=== PATIENT | female | born 1970 | race Caucasian/White ===

== ENCOUNTER 2017-03-13 08:00 | Emergency (ER) | payer BC ==
[~2017-03-13] VITALS: Ht 162.6 cm; Wt 90.7 kg
[~2017-03-13 08:00] MED LIST: ALPR0.25 PO; ALPR0.254 PO; CHOL500049 PO; CITA-105 PO; CITA20TA4 PO; CITA40TA19 PO; EZET1TAB43; FURO20TA4 PO; GEMF600T3 PO; HYDR-3812 PO; HYDR1TAB PO; KCL10CCR PO; KCL20TCR PO; LIRA0.6P3 SQ; MELO-195 PO; MELO15TA14 PO; MTF500T; MTF500T PO; ONDA8TAB6 PO; PANT40TA2 PO; PHEN-483 PO; SITA100T; SPIR100T2 PO
[2017-03-13] MEDS ORDERED: POTA10TA10 (08:10)
[2017-03-13] MEDS ORDERED: DULA0.75 (08:10)
[2017-03-13 08:28] LABS: BASOPHILS % (AUTO) 1 % (0-10); EOSINOPHILS # (AUTO) 0.2 10^3/uL (0.0-0.3); EOSINOPHILS % (AUTO) 3 % (0-10); LYMPHOCYTES # (AUTO) 1.6 X 10^3 (1.0-4.0); LYMPHOCYTES % (AUTO) 27 % (12-44); MEAN CORPUSCULAR HEMOGLOBIN 31 PG (25-34); MEAN CORPUSCULAR HGB CONC 34 G/DL (32-36); MEAN CORPUSCULAR VOLUME 92 FL (80-99); MONOCYTES # (AUTO) 0.6 X 10^3 (0.0-1.0); MONOCYTES % (AUTO) 10 % (0-12); NEUTROPHILS # (AUTO) 3.7 X 10^3 (1.8-7.8); NEUTROPHILS % (AUTO) 60 % (42-75); PLATELET COUNT 338 10^3/uL (130-400); RED BLOOD COUNT 4.81 10^6/uL (4.35-5.85); RED CELL DISTRIBUTION WIDTH 12.3 % (10.0-14.5); WHITE BLOOD COUNT 6.1 10^3/uL (4.3-11.0)
--- NOTE | 2017-03-13 08:30 | Diagnostic Imaging Report ---
EXAM: CHEST 1 VIEW, AP/PA ONLY. INDICATION: Chest pain. COMPARISON: Chest radiograph 02/18/2015. FINDINGS: Normal heart size and pulmonary vascularity. No focal pulmonary opacity, pleural effusion, or pneumothorax. No acute osseous findings. IMPRESSION: Negative chest. Dictated by: Dictated on workstation # [id number]
[2017-03-13 08:45] LABS: ALANINE AMINOTRANSFERASE 50 U/L (0-55); ANION GAP 14 MMOL/L (5-14); ASPARTATE AMINO TRANSFERASE 28 U/L (5-34); BILIRUBIN,TOTAL 0.7 MG/DL (0.1-1.0); BLOOD UREA NITROGEN 15 MG/DL (7-18); BUN/CREATININE RATIO 17; CALCIUM 9.8 MG/DL (8.5-10.1); CARBON DIOXIDE 23 MMOL/L (21-32); CHLORIDE 102 MMOL/L (98-107); GFR ESTIMATED > 60; GLUCOSE 93 MG/DL (70-105); POTASSIUM 4.1 MMOL/L (3.6-5.0); SODIUM 139 MMOL/L (135-145); TOTAL PROTEIN 8.2 G/DL (6.4-8.2)
[2017-03-13 08:51] LABS: TROPONIN I < 0.30 NG/ML (<0.30)
--- NOTE | 2017-03-13 09:14 | ED Chest Pain ---
General Chief Complaint: Chest Pain Stated Complaint: CHEST PAIN Nursing Triage Note: AMBULATED TO ROOM 07 WITH COMLPAINTS OF CHEST/EPIGASTRIC PAIN STARTING AT 0705 TODAY. Nursing Sepsis Screen: No Definite Risk Source: patient Exam Limitations: no limitations History of Present Illness Time seen by provider: 09:10 Initial Comments The patient is a 47-year-old white female. She presents this morning with a chief complaint of chest pain. This began while she was at work at [employer] It has now largely abated. She had not done any usual activity today or yesterday. She is a lifetime nonsmoker. There are rampant lipid disorders in her family. She is taking gemfibrozil for triglycerides for 12 years. She is also hypertensive. She had a OSMANY/BSO done 12 years ago. Timing/Duration: 1 hour Severity/Quality: moderate Location: substernal Radiation: no radiation Activities at Onset: activity (light) Associated Symptoms: denies symptoms Allergies and Home Medications Allergies Coded Allergies: No Known Drug Allergies (Unverified , 10/31/16) Home Medications Cholecalciferol (Vitamin D3) 50,000 Unit Capsule, 50,000 UNIT PO WEEK, (Reported ) Citalopram Hydrobromide 40 Mg Tablet, 40 MG PO HS, (Reported) Dulaglutide 0.75 Mg/0.5 Ml Pen.injctr, #2 (Reported) Gemfibrozil 600 Mg Tablet, 600 MG PO BID, (Reported) Metformin Hcl 500 Mg Tablet, 500 MG PO BID, (Reported) Phentermine HCl 37.5 Mg Capsule, 37.5 MG PO DAILY, (Reported) Potassium Chloride 10 Meq Tablet.er, #90 (Reported) Spironolactone 100 Mg Tablet, 100 MG PO DAILY, (Reported) Review of Systems Constitutional: see HPI EENTM: No Symptoms Reported Respiratory: No Symptoms Reported Cardiovascular: Chest Pain Gastrointestinal: No Symptoms Reported Genitourinary: No Symptoms Reported Musculoskeletal: no symptoms reported Skin: no symptoms reported Psychiatric/Neurological: No Symptoms Reported Endocrine: No Symptoms Reported Hematologic/Lymphatic: No Symptoms Reported Past Johzyne-Fzboui-Uozfgg Hx Patient Social History Alcohol Use: Denies Use Recreational Drug Use: No Smoking Status: Never a Smoker Recent Foreign Travel: No Contact w/Someone Who Travel: No Recent Infectious Disease Expo: No Recent Hopitalizations: No Immunizations Up To Date Date of Influenza Vaccine: Sep 12, 2016 Seasonal Allergies Seasonal Allergies: No Surgeries HX Surgeries: Yes ( x3) Surgeries: Section, Hysterectomy Respiratory Hx Respiratory Disorders: Yes Respiratory Disorders: Sleep Apnea Cardiovascular Hx Cardiac Disorders: Yes Cardiac Disorders: Angina, High Cholesterol, Hypertension Neurological Hx Neurological Disorders: Yes Neurological Disorders: Headaches /Migraines 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 System Hx 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 Disorders: No Sexually Transmitted Disease: No HIV/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 Genitourinary Hx Genitourinary Disorders: No Gastrointestinal Hx Gastrointestinal Disorders: Yes Gastrointestinal Disorders: Gall Bladder Disease Musculoskeletal Hx Musculoskeletal Disorders: No Endocrine Hx Endocrine Disorders: Yes ("Thyroid nodule") Endocrine Disorders: Diabetes, Non-Insulin dep HEENT HX ENT Disorders: Yes (GLASSES, DENTURES) Loss of Vision: Bilateral Hearing Impairment: Denies Cancer Hx Cancer: Yes Cancer: Skin Psychosocial Hx Psychiatric Problems: Yes Behavioral Health Disorders: Anxiety, Depression Integumentary HX Skin/Integumentary Disorder: No Blood Transfusions Hx Blood Disorders: No Adverse Reaction to a Blood Tr: No (N/A) Family Medical History Family Medial History: Completed stroke 19 FATHER Congenital heart disease 19 MOTHER FH: COPD (chronic obstructive pulmonary disease) 19 MOTHER FH: skin cancer 19 MOTHER Hypertension 19 FATHER 19 MOTHER Myocardial infarction 19 FATHER Thyroid disease 19 MOTHER No Family History of: Alzheimer's disease Dementia Physical Exam Vital Signs Vital Sign - Last 12Hours 03/13/17 08:06 Temp 97.2 Pulse 75 Resp 16 B/P (MAP) 145/90 Pulse Ox 96 Capillary Refill : Less Than 3 Seconds General Appearance: Anxious, Mild Distress HEENT: Normal ENT Inspection Neck: Normal Inspection Respiratory: Chest Non Tender, Lungs Clear, Normal Breath Sounds, No Accessory Muscle Use, No Respiratory Distress Cardiovascular: Regular Rate, Rhythm, No Edema, No Gallop, No JVD, No Murmur, Normal Peripheral Pulses Gastrointestinal: Normal Bowel Sounds, No Organomegaly, No Pulsatile Mass, Non Tender Extremity: Normal Capillary Refill, Normal Inspection, Normal Range of Motion, Non Tender, No Calf Tenderness, No Pedal Edema Neurologic/Psychiatric: Alert, Oriented x3, No Motor/Sensory Deficits, Normal Mood/Affect Skin: Normal Color, Warm/Dry Lymphatic: No Adenopathy Progress/Results/Core Measures Results/Orders Lab Results Laboratory Tests Test 03/13/17 08:20 Range/Units White Blood Count 6.1 4.3-11.0 10^3/uL Red Blood Count 4.81 4.35-5.85 10^6/uL Hemoglobin 15.0 11.5-16.0 G/DL Hematocrit 44 35-52 % Mean Corpuscular Volume 92 80-99 FL Mean Corpuscular Hemoglobin 31 25-34 PG Mean Corpuscular Hemoglobin Concent 34 32-36 G/DL Red Cell Distribution Width 12.3 10.0-14.5 % Platelet Count 338 130-400 10^3/uL Mean Platelet Volume 10.0 7.4-10.4 FL Neutrophils (%) (Auto) 60 42-75 % Lymphocytes (%) (Auto) 27 12-44 % Monocytes (%) (Auto) 10 0-12 % Eosinophils (%) (Auto) 3 0-10 % Basophils (%) (Auto) 1 0-10 % Neutrophils # (Auto) 3.7 1.8-7.8 X 10^3 Lymphocytes # (Auto) 1.6 1.0-4.0 X 10^3 Monocytes # (Auto) 0.6 0.0-1.0 X 10^3 Eosinophils # (Auto) 0.2 0.0-0.3 10^3/uL Basophils # (Auto) 0.0 0.0-0.1 10^3/uL Sodium Level 139 135-145 MMOL/L Potassium Level 4.1 3.6-5.0 MMOL/L Chloride Level 102 98-107 MMOL/L Carbon Dioxide Level 23 21-32 MMOL/L Anion Gap 14 5-14 MMOL/L Blood Urea Nitrogen 15 7-18 MG/DL Creatinine 0.90 0.60-1.30 MG/DL Estimat Glomerular Filtration Rate > 60 BUN/Creatinine Ratio 17 Glucose Level 93 70-105 MG/DL Calcium Level 9.8 8.5-10.1 MG/DL Total Bilirubin 0.7 0.1-1.0 MG/DL Aspartate Amino Transf (AST/SGOT) 28 5-34 U/L Alanine Aminotransferase (ALT/SGPT) 50 0-55 U/L Alkaline Phosphatase 84 40-136 U/L Troponin I < 0.30 <0.30 NG/ML Total Protein 8.2 6.4-8.2 G/DL Albumin 5.0 H 3.2-4.5 G/DL My Orders Orders - CANDIDO JOHNSON MD Ekg Tracing (03/13/17 08:08) Cbc With Automated Diff (03/13/17 08:08) Comprehensive Metabolic Panel (03/13/17 08:08) Troponin I (03/13/17 08:08) Chest 1 View, Ap/Pa Only (03/13/17 08:08) Vital Signs/I&O Vital Sign - Last 12Hours 03/13/17 08:06 Temp 97.2 Pulse 75 Resp 16 B/P (MAP) 145/90 Pulse Ox 96 Blood Pressure Mean: 108 Departure Communication Progress Notes Chest x-ray, EKG, troponin are negative. Her risk factors are intermediate. Placed a call to Dr. Guerrero's office and he returned my call at [phone]. He will arrange for outpatient treadmill testing. Impression Impression: Primary Impression: Chest pain Disposition: 01 HOME, SELF-CARE Departure-Patient Inst. Decision time for Depature: 09:46 Referrals: MIREYA GUERRERO DO (PCP/Family) Primary Care Physician Patient Instructions: Chest Pain (DC) Add. Discharge Instructions: All discharge instructions reviewed with patient and/or family. Voiced understanding. Call Dr. Guerrero's office [phone] later this morning to schedule your treadmill testing. If significant chest pain returns return to the emergency room. CANDIDO JOHNSON MD Mar 13, 2017 09:14
[2017-03-13 10:13] VITALS: BP 116/83
== END 2017-03-13 10:13 | disposition home or self-care (01) ==
LOC: EDUNIT# 08:00 → ER 08:02
DX: R07.9 Chest pain, unspecified (principal); I10 Essential (primary) hypertension; E11.9 Type 2 diabetes mellitus without complications; E78.5 Hyperlipidemia, unspecified; Z79.84 Long term (current) use of oral hypoglycemic drugs; Z79.899 Other long term (current) drug therapy
CPT/HCPCS: 36415; 71010; 80053; 84484; 85025; 93005

== ENCOUNTER → 2017-10-18 | Outpatient (CLI) | payer BC ==
[~2017-10-18] MED LIST changes: +DULA0.75; +POTA10TA10
== END ==
LOC: LABNPT 10:05
PROVIDERS: ATTEND Otolaryngology Otolaryngology/Facial Plastic Surgery
DX: H93.91 Unspecified disorder of right ear (principal)
CPT/HCPCS: 87070; 87077; 87186

== ENCOUNTER 2020-02-05 15:06 | Emergency (ER) | payer BC ==
[~2020-02-05] VITALS: Ht 165 cm; Wt 100.0 kg
[~2020-02-05 15:06] MED LIST changes: +ACHD5005 PO; +GEMF600T8 PO; -HYDR-3812 PO; -SPIR100T2 PO; +SPIR100T4 PO
--- NOTE | 2020-02-05 15:28 | NUR ---
THE PT FELL OFF HER HORSE TO THE GROUND. SHE C/O LEFT RIB PAIN.
--- NOTE | 2020-02-05 15:51 | ED Fall/Injury ---
General Chief Complaint: Chest Wall Stated Complaint: RIB PAIN/FELL OF HORSE Nursing Triage Note: THE PT IS AMBULATORY TO THE ROOM WITHOUT DIFFICULTY. NO DISTRESS IS SEEN ON ARRIVAL. LOC IS NORMAL FOR THE PT. THE PT FEEL OFF HER HORSE. SHE C/O RIGHT RIB PAIN. Source: patient Exam Limitations: no limitations History of Present Illness Date Seen by Provider: Feb 05, 2020 Time Seen by Provider: 15:50 Initial Comments 50-year-old female patient presents with complaints of left rib pain after falling off of her horse. Patient reports losing her balance. She does state she hit her head on the ground and does have a mild headache. Denies loss of consciousness, neck pain, back pain, dizziness, seizure, vomiting, or nausea. Occurred: just prior to arrival Injuries/Pain Location: head, chest (left rib) Context: lost balance (patient reports losing balance and falling off a horse.) Loss of Consciousness: no loss of consciousness Modifying Factors: Worse With Movement Allergies and Home Medications Allergies Coded Allergies: No Known Drug Allergies (Unverified , 10/31/16) Home Medications Cholecalciferol (Vitamin D3) 50,000 Unit Capsule, 50,000 UNIT PO WEEK, (Reported) Citalopram Hydrobromide 40 Mg Tablet, 40 MG PO HS, (Reported) Cyclobenzaprine HCl 10 Mg Tablet, 10 MG PO TID PRN for SPASMS Prescribed by: MACARIO KEITH on 02/05/201717 Gemfibrozil 600 Mg Tablet, 600 MG PO BID, (Reported) Metformin Hcl 500 Mg Tablet, 500 MG PO BID, (Reported) Phentermine HCl 37.5 Mg Capsule, 37.5 MG PO DAILY, (Reported) Spironolactone 100 Mg Tablet, 100 MG PO DAILY, (Reported) Patient Home Medication List Home Medication List Reviewed: Yes Review of Systems Review of Systems Constitutional: no symptoms reported Eyes: Denies Blindness, Denies Blurred Vision, Denies Drainage, Denies Decreased Acuity, Denies Pain, Denies Photophobia, Denies Vision Changes Ears, Nose, Mouth, Throat: denies ear pain, denies ear discharge, denies nose pain, denies nose discharge, denies epistaxis, denies mouth pain, denies loose teeth, denies throat pain Respiratory: see HPI; No cough, No dyspnea on exertion, No hemoptysis, No orthopnea, No short of breath, No stridor, No wheezing; other (left rib pain) Cardiovascular: no symptoms reported Gastrointestinal: no symptoms reported Genitourinary: no symptoms reported Musculoskeletal: No back pain, No joint pain, No neck pain; other (left rib pain) Skin: no symptoms reported Psychiatric/Neurological: Headache; Denies Numbness, Denies Paresthesia, Denies Seizure, Denies Tingling, Denies Weakness All Other Systems Reviewed Negative Unless Noted: Yes (Negative excepted noted.) Past Zhwgacl-Foctkb-Mmgdqk Hx Past Med/Social Hx: Reviewed Nursing Past Med/Soc Hx Patient Social History Recent Foreign Travel: No Contact w/Someone Who Travel: No Recent Infectious Disease Expo: No Recent Hopitalizations: No Physical Abuse: No Sexual Abuse: No Mistreated: No Fear: No Immunizations Up To Date Date of Influenza Vaccine: Sep 12, 2016 Seasonal Allergies Seasonal Allergies: No Past Medical History Surgeries: Yes Section, Hysterectomy Sleep Apnea Currently Using CPAP: Yes Angina, High Cholesterol, Hypertension Headaches /Migraines 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 Disorders: 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 Sexually Transmitted Disease: No HIV/AIDS: No Gall Bladder Disease Diabetes, Non-Insulin dep Loss of Vision: Bilateral Hearing Impairment: Denies Skin Anxiety, Depression Adverse Reaction/Blood Tranf: No (N/A) Family Medical History Reviewed Nursing Family Hx Completed stroke 19 FATHER Congenital heart disease 19 MOTHER FH: COPD (chronic obstructive pulmonary disease) 19 MOTHER FH: skin cancer 19 MOTHER Hypertension 19 FATHER 19 MOTHER Myocardial infarction 19 FATHER Thyroid disease 19 MOTHER No Family History of: Alzheimer's disease Dementia No Pertinent Family Hx Physical Exam Vital Signs Vital Signs - First Documented 02/05/20 02/05/20 15:20 17:27 Temp 36.9 Pulse 199 Resp 18 B/P (MAP) 138/ Pulse Ox 95 Capillary Refill : Less Than 3 Seconds Height, Weight, BMI Height: 5'4.00" Weight: 200lbs. 0.0oz. [id number]; 36.00 BMI Method:Estimated General Appearance: WD/WN, no apparent distress HEENT: PERRL/EOMI, normal ENT inspection, TMs normal, pharynx normal, other (not evidence of Sofia sign or raccoon eyes) Neck: non-tender, full range of motion, supple, normal inspection Cardiovascular: normal peripheral pulses, regular rate, rhythm, no edema, no gallop, no murmur Respiratory: lungs clear, normal breath sounds, no respiratory distress, no accessory muscle use, other (left anterior lower ribs tender to palpation wi thout swelling, ecchymosis, or deformity) Peripheral Pulses: 2+ Dorsalis Pedis (R), 2+ Left Dors-Pedis (L), 2+ Radial Pulses (R), 2+ Radial Pulses (L) Gastrointestinal: normal bowel sounds, non tender, soft, no organomegaly; No distended Back: normal inspection, no vertebral tenderness; No decreased range of motion Extremities: normal range of motion, non-tender, normal inspection, normal capillary refill, pelvis stable 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, no motor/sensory deficits, alert, normal mood/affect, oriented x 3 Skin: normal color, warm/dry; No ecchymosis Elzbieta Coma Score Best Eye Response: (4) Open Spontaneously Best Verbal Response: (5) Oriented Best Motor Response: (6) Obeys Commands Elzbieta Total: 15 Progress/Results/Core Measures Results/Orders My Orders Orders - MACARIO KEITH Ct Head Wo (02/05/20 15:56) Ribs/Unilateral With Chest (02/05/20 15:56) Morphine Injection (Morphine Injection (02/05/20 15:56) Vital Signs/I&O 02/05/20 02/05/20 15:20 17:27 Temp 36.9 36.8 Pulse 199 88 Resp 18 B/P (MAP) 138/ 130/90 Pulse Ox 95 Diagnostic Imaging Diagonstic Imaging: CT Plain Films/CT/US/NM/MRI: head Comments Date of Exam:02/05/20 CT HEAD WO PROCEDURE: CT head without contrast. TECHNIQUE: Multiple contiguous axial images were obtained through the brain without the use of intravenous contrast. Auto Exposure Controls were utilized during the CT exam to meet ALARA standards for radiation dose reduction. INDICATION: Fall off horse. Comparison made with prior examination from 07/22/2010. FINDINGS: The ventricles and sulci are within normal limits. There is no hydrocephalus or cerebral edema. There is no midline shift or mass effect. There is no intracranial mass, hemorrhage, or extra-axial fluid collection. The visualized paranasal sinuses and mastoid air cells are clear. There are no regional areas of decreased attenuation appreciated to suggest an acute CVA. IMPRESSION: No acute intracranial abnormality. Dictated by: Dictated on workstation # [id number] Dict: 02/05/20 1633 Reviewed: Reviewed by Me (radiology report reviewed by me) Diagonstic Imaging: Xray Plain Films/CT/US/NM/MRI: chest (with left ribs) Comments Date of Exam:02/05/20 RIBS/UNILATERAL WITH CHEST INDICATION: Fall, pain. COMPARISON: March 13, 2017 TECHNIQUE: Four radiographs of the chest and left- sided ribs dated February 05, 2020. FINDINGS: The cardiac silhouette is within normal limits in size. No significant pulmonary vascular congestion. The lungs are clear. No pleural effusion. No pneumothorax. No displaced or healing rib fracture. IMPRESSION: No displaced or healing rib fracture. No large volume pleural effusion or pneumothorax. Dictated by: Dictated on workstation # [id number] Dict: 02/05/20 1645 Trans: 02/05/20 1723 [facility] [id number] Reviewed: Reviewed by Me (radiology report reviewed by me) Departure Communication (Admissions) Patient seen and evaluated. X-ray of the chest with left ribs and CT head negative for acute findings. Patient was given 4 mg of morphine IM with improvement in pain and headache. Diagnostic findings were discussed with the patient. We'll plan for discharge to home with oral Flexeril. Patient instructed to use Tylenol and ibuprofen [id number] for pain as needed. She is to return to the emergency department immediately for worsened symptoms. Also patient was instructed to follow-up with her primary care provider for recheck as an outpatient. Patient verbalized understanding and agrees with the treatment plan. Impression Primary Impression: Minor head injury without loss of consciousness Qualified Codes: S09.90XA - Unspecified injury of head, initial encounter Additional Impression: Contusion of rib on left side Qualified Codes: S20.212A - Contusion of left front wall of thorax, initial encounter Disposition: HOME, SELF-CARE Condition: Improved Departure-Patient Inst. Decision time for Depature: 17:16 Referrals: MIREYA WITT DO (PCP/Family) Primary Care Physician Patient Instructions: Bruised Rib, Closed Head Injury (DC) Add. Discharge Instructions: All discharge instructions reviewed with patient and/or family. Voiced understanding. Medications as instructed. Tylenol Extra Strength [id number]-[id number] as directed for pain. Ibuprofen 600 mg by mouth every 6-8 hours as needed for pain. Ice pack for 20 minute intervals as needed for pain for 2-3 days, then use a heating pad or warm pack as needed for pain. Avoid strenuous activities, lifting, pushing, pulling, or activities which may result and head injury for 7 days after headache resolves. Follow-up with your family practitioner for recheck as an outpatient within the next 7-10 days. Return to the emergency department for worsened symptoms or any other concerns. Scripts Cyclobenzaprine HCl (Cyclobenzaprine HCl) 10 Mg Tablet 10 MG PO TID PRN for SPASMS, #14 TAB 0 Refills Prov: MACARIO KEITH 02/05/20 Copy Copies To 1: MIREYA WITT GRETCHEN L PA Feb 05, 2020 15:50
[2020-02-05] MEDS ORDERED: morphine INJ 10 MG/ML 1ML (SYR OR VIAL) IM STA (15:56)
--- NOTE | 2020-02-05 16:37 | Diagnostic Imaging Report ---
PROCEDURE: CT head without contrast. TECHNIQUE: Multiple contiguous axial images were obtained through the brain without the use of intravenous contrast. Auto Exposure Controls were utilized during the CT exam to meet ALARA standards for radiation dose reduction. INDICATION: Fall off horse. Comparison made with prior examination from 07/22/2010. FINDINGS: The ventricles and sulci are within normal limits. There is no hydrocephalus or cerebral edema. There is no midline shift or mass effect. There is no intracranial mass, hemorrhage, or extra-axial fluid collection. The visualized paranasal sinuses and mastoid air cells are clear. There are no regional areas of decreased attenuation appreciated to suggest an acute CVA. IMPRESSION: No acute intracranial abnormality. Dictated by: Dictated on workstation # [id number]
[2020-02-05] MEDS ORDERED: CYCL10TA9 PO (17:18)
--- NOTE | 2020-02-05 17:20 | Diagnostic Imaging Report ---
INDICATION: Fall, pain. COMPARISON: March 13, 2017 TECHNIQUE: Four radiographs of the chest and left-sided ribs dated February 05, 2020. FINDINGS: The cardiac silhouette is within normal limits in size. No significant pulmonary vascular congestion. The lungs are clear. No pleural effusion. No pneumothorax. No displaced or healing rib fracture. IMPRESSION: No displaced or healing rib fracture. No large volume pleural effusion or pneumothorax. Dictated by: Dictated on workstation # [id number]
[2020-02-05 17:27] VITALS: BP 130/90
== END 2020-02-05 17:29 | disposition home or self-care (01) ==
LOC: EDUNIT# 15:06 → ER 15:07
DX: S09.90XA Unspecified injury of head, initial encounter (principal); S20.212A Contusion of left front wall of thorax, initial encounter; E11.9 Type 2 diabetes mellitus without complications; E78.00 Pure hypercholesterolemia, unspecified; G47.30 Sleep apnea, unspecified; Z99.89 Dependence on other enabling machines and devices; Z79.84 Long term (current) use of oral hypoglycemic drugs; Z80.8 Family history of malignant neoplasm of other organs or systems; Z82.49 Family history of ischemic heart disease and other diseases of the circulatory system; V80.010A Animal-rider injured by fall from or being thrown from horse in noncollision accident, initial encounter
CPT/HCPCS: 70450; 71101

== ENCOUNTER → 2020-08-08 | Outpatient (CLI) | payer BC ==
[~2020-08-08] MED LIST changes: +CYCL10TA9 PO; +RT-ALBUTEROL SULF 2.5 MG/3 ML PRE-MIX VIAL INH ONE
== END ==
LOC: RT 14:57
PROVIDERS: ATTEND Nurse Practitioner Family
DX: J98.4 Other disorders of lung (principal); G47.33 Obstructive sleep apnea (adult) (pediatric)
CPT/HCPCS: 94060; 94726; 94729

== ENCOUNTER → 2020-10-13 | Outpatient (CLI) | payer BC ==
[~2020-10-13] MED LIST changes: -RT-ALBUTEROL SULF 2.5 MG/3 ML PRE-MIX VIAL INH ONE
--- NOTE | 2020-10-13 12:06 | Diagnostic Imaging Report ---
INDICATION: Left hip pain and injury. Time of the time: 11:51 AM 2 views left hip were obtained. Femoral acetabular alignment is normal. Joint spaces well maintained. Femoral head and neck are intact. No fractures are seen. Left-sided rami are intact. IMPRESSION: No acute bony abnormality is detected. Dictated by: Dictated on workstation # [id number]
== END ==
LOC: RAD 10:40
PROVIDERS: ATTEND Nurse Practitioner Family
DX: M25.552 Pain in left hip (principal)
CPT/HCPCS: 73502

== ENCOUNTER 2021-07-07 18:40 | Emergency (ER) | payer BC ==
[~2021-07-07] VITALS: Ht 160 cm; Wt 101.0 kg
[~2021-07-07 18:40] MED LIST changes: -GEMF600T8 PO; +GEMF600T88 PO
--- NOTE | 2021-07-07 19:12 | ED Fall/Injury ---
General Chief Complaint: Back Problems Stated Complaint: BACK PAIN Nursing Triage Note: Pt arrival to ER via wheelchair with complaint of back pain x 2.5 hrs. Pt states that she was barrel racing on her horse, and her new saddle broke causing her to fall from the horse and landed on left side. Pain at a 10/10. Pt denies loss of conciousness. Pt states that it hurts to breath. Vitals are stable. Source: patient History of Present Illness Date Seen by Provider: Jul 07, 2021 Time Seen by Provider: 18:56 Initial Comments 1-year-old female with past medical history of diabetes and hypertension coming in after she was thrown from her horse doing barrel racing around 4 PM today. She was thrown to her left side with immediate left-sided chest wall and left abdominal pain. She waited until she had a ride to come here. The pain is continuous, sharp, worse with a deep breath. Never had pain like this before. Denies taking any blood thinners. She is otherwise denying any other acute complaints including any headache, loss of consciousness, difficulty walking, or any other concerns. Allergies and Home Medications Allergies Coded Allergies: No Known Drug Allergies (Unverified , 10/31/16) Home Medications Cholecalciferol (Vitamin D3) 50,000 Unit Capsule, 50,000 UNIT PO WEEK, (Reported) Citalopram Hydrobromide 40 Mg Tablet, 40 MG PO HS, (Reported) Cyclobenzaprine HCl 10 Mg Tablet, 10 MG PO TID PRN for SPASMS Prescribed by: MACARIO KEITH on 02/05/208 Gemfibrozil 600 Mg Tablet, 600 MG PO BID, (Reported) Metformin Hcl 500 Mg Tablet, 500 MG PO BID, (Reported) Phentermine HCl 37.5 Mg Capsule, 37.5 MG PO DAILY, (Reported) Spironolactone 100 Mg Tablet, 100 MG PO DAILY, (Reported) Patient Home Medication List Home Medication List Reviewed: Yes Review of Systems Review of Systems Constitutional: No fever Eyes: Denies Blurred Vision Ears, Nose, Mouth, Throat: denies ear discharge Respiratory: No cough Cardiovascular: No chest pain Gastrointestinal: abdominal pain; No nausea, No vomiting Genitourinary: No hematuria : No Musculoskeletal: No muscle pain Skin: No rash Psychiatric/Neurological: Denies Anxiety, Denies Depressed All Other Systems Reviewed Negative Unless Noted: Yes Past Fdbsptp-Uunldp-Vbbyeb Hx Patient Social History Tobacco Use?: No Use of E-Cig and/or Vaping dev: No Substance use?: No Alcohol Use?: No Pt feels they are or have been: No Immunizations Up To Date Influenza Vaccine Up-to-Date: No; Not Current Seasonal Allergies Seasonal Allergies: No Past Medical History Surgeries: Yes Section, Hysterectomy Sleep Apnea Currently Using CPAP: Yes Angina, High Cholesterol, Hypertension Headaches /Migraines 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 Disorders: No 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 Sexually Transmitted Disease: No HIV/AIDS: No Gall Bladder Disease Diabetes, Non-Insulin dep Loss of Vision: Bilateral Hearing Impairment: Denies Skin Anxiety, Depression Adverse Reaction/Blood Tranf: No (N/A) Family Medical History Completed stroke 19 FATHER Congenital heart disease 19 MOTHER FH: COPD (chronic obstructive pulmonary disease) 19 MOTHER FH: skin cancer 19 MOTHER Hypertension 19 FATHER 19 MOTHER Myocardial infarction 19 FATHER Thyroid disease 19 MOTHER No Family History of: Alzheimer's disease Dementia No Pertinent Family Hx Physical Exam Vital Signs Vital Signs - First Documented 07/07/21 18:51 Temp 36.4 Pulse 80 Resp 24 B/P (MAP) 144/77 (99) Pulse Ox 95 O2 Delivery Room Air Capillary Refill : Less Than 3 Seconds Height, Weight, BMI Height: 5'4.00" Weight: 200lbs. 0.0oz. 90.900257nd; 39.00 BMI Method:Estimated General Appearance: WD/WN, no apparent distress HEENT: PERRL/EOMI, normal ENT inspection, TMs normal, pharynx normal Neck: non-tender, full range of motion, supple, normal inspection Cardiovascular: regular rate, rhythm, no edema, no murmur Respiratory: lungs clear, normal breath sounds, no respiratory distress, no accessory muscle use, other (Chest wall tender on the left side lower) Gastrointestinal: normal bowel sounds, soft; No distended, No guarding, No rebound; tenderness (tender LUQ) Back: normal inspection, no CVA tenderness, no vertebral tenderness Extremities: normal range of motion, non-tender, normal inspection, no pedal edema, no calf tenderness, normal capillary refill Neurologic/Psychiatric: no motor/sensory deficits, alert, normal mood/affect, oriented x 3 Skin: normal color, warm/dry Lymphatic: no adenopathy Prentiss Coma Score Best Eye Response: (4) Open Spontaneously Best Verbal Response: (5) Oriented Best Motor Response: (6) Obeys Commands Elzbieta Total: 15 Progress/Results/Core Measures Results/Orders Lab Results Laboratory Tests Test 07/07/21 19:23 Range/Units White Blood Count 8.5 4.3-11.0 10^3/uL Red Blood Count 4.30 3.80-5.11 10^6/uL Hemoglobin 13.9 11.5-16.0 g/dL Hematocrit 41 35-52 % Mean Corpuscular Volume 94 80-99 fL Mean Corpuscular Hemoglobin 32 25-34 pg Mean Corpuscular Hemoglobin Concent 34 32-36 g/dL Red Cell Distribution Width 12.1 10.0-14.5 % Platelet Count 295 130-400 10^3/uL Mean Platelet Volume 9.7 9.0-12.2 fL Sodium Level 141 135-145 MMOL/L Potassium Level 3.9 3.6-5.0 MMOL/L Chloride Level 104 98-107 MMOL/L Carbon Dioxide Level 26 21-32 MMOL/L Anion Gap 11 5-14 MMOL/L Blood Urea Nitrogen 20 H 7-18 MG/DL Creatinine 0.89 0.60-1.30 MG/DL Estimat Glomerular Filtration Rate 66 BUN/Creatinine Ratio 22 Glucose Level 99 70-105 MG/DL Calcium Level 9.3 8.5-10.1 MG/DL Total Bilirubin 0.3 0.1-1.0 MG/DL Direct Bilirubin 0.1 0.0-0.3 MG/DL Indirect Bilirubin 0.2 MG/DL Aspartate Amino Transf (AST/SGOT) 29 5-34 U/L Alanine Aminotransferase (ALT/SGPT) 48 0-55 U/L Alkaline Phosphatase 82 40-136 U/L Total Protein 7.8 6.4-8.2 GM/DL Albumin 4.3 3.2-4.5 GM/DL Serum Test, Qualitative NEGATIVE NEGATIVE My Orders Orders - CHANDU FLYNN MD Cbc No Diff (07/07/21 19:02) Basic Metabolic Panel (07/07/21 19:02) Liver Panel (07/07/21 19:02) Hcg,Qualitative Serum (07/07/21 19:02) Type And Screen (07/07/21 19:02) Monitor-Rhythm Ecg Trace Only (07/07/21 19:02) Ed Iv/Invasive Line Start (07/07/21 19:02) Morphine Injection (Morphine Injection (07/07/21 19:15) Iohexol Injection (Omnipaque 350 Mg/Ml 1 (07/07/21 20:00) Received Contrast (Hold Metformin- Contr (07/07/21 20:00) Ns (Ivpb) (Sodium Chloride 0.9% Ivpb Bag (07/07/21 20:00) Ct Chest/Abdomen/Pelvis W (07/07/21 19:02) Ketorolac Injection (Toradol Injection) (07/07/21 20:47) Medications Given in ED Current Medications Medications Dose Ordered Sig/Shania Route Start Time Stop Time Status Last Admin Dose Admin Iohexol 100 ml ONCE ONCE IV 07/07/21 20:00 07/07/21 20:01 DC 07/07/21 20:22 100 ML Morphine Sulfate 4 mg ONCE ONCE IVP 07/07/21 19:15 07/07/21 19:16 DC 07/07/21 19:23 4 MG Sodium Chloride 100 ml ONCE ONCE IV 07/07/21 20:00 07/07/21 20:01 DC 07/07/21 20:22 80 ML Vital Signs/I&O 07/07/21 18:51 Temp 36.4 Pulse 80 Resp 24 B/P (MAP) 144/77 (99) Pulse Ox 95 O2 Delivery Room Air Blood Pressure Mean: 99 Progress Progress Note : Progress Note 51yoF with above history coming in for L sided chest wall and abdominal pain after being thrown from a horse a couple hours prior to arrival. ABCs intact and VSS on arrival with GCS of 15. IV was placed and she was given morphine for pain. Given where she is tender I am most concerned for a possible splenic laceration as well as rib fractures. Lung sounds were clear making PTX and hemothorax less likely. She has no uterus so is not . CT chest, abdomen, and pelvis ordered with contrast to assess for these pathologies as well as basic labs. Labs unremarkable. CT imaging without any obvious fractures or solid organ injury. They were acutely normal. She was then given Toradol for pain control. I believe she is stable for discharge. She was sent home with strict return precautions. Diagnostic Imaging Diagonstic Imaging: CT Comments CT chest, abdomen, and pelvis without any obvious pneumothorax, hemothorax, fractures of the ribs, or solid organ injury on my interpretation. Departure Impression Primary Impression: Fall Qualified Codes: W19.XXXA - Unspecified fall, initial encounter Additional Impressions: Abdominal wall contusion Qualified Codes: S30.1XXA - Contusion of abdominal wall, initial encounter Chest wall contusion Qualified Codes: S20.212A - Contusion of left front wall of thorax, initial encounter Disposition: HOME, SELF-CARE Condition: Stable Departure-Patient Inst. Decision time for Depature: 20:51 Referrals: MIREYA WITT DO (PCP/Family) Primary Care Physician Patient Instructions: Blunt Abdominal Trauma (DC), Rib Fracture or Bruised Rib ED Add. Discharge Instructions: He was seen in the emergency department after he fell from the horse. CT scans were negative for anything broken or bleeding. You do have some significant bruising that is going to hurt. Take 600 mg of ibuprofen starting in the morning every 6 hours. If you still having pain you can then take 1000 mg of Tylenol every 6-8 hours as well. If you have any concerns please come back to the emergency department. All discharge instructions reviewed with patient and/or family. Voiced understanding. CHANDU FLYNN MD Jul 07, 2021 19:12
[2021-07-07] MEDS ORDERED: morphine INJ 10 MG/ML 1ML (SYR OR VIAL) IVP ONE (19:15)
[2021-07-07 19:27] LABS: HEMATOCRIT 41 % (35-52); HEMOGLOBIN 13.9 g/dL (11.5-16.0); MEAN CORPUSCULAR HEMOGLOBIN 32 pg (25-34); MEAN CORPUSCULAR HGB CONC 34 g/dL (32-36); MEAN CORPUSCULAR VOLUME 94 fL (80-99); MEAN PLATELET VOLUME 9.7 fL (9.0-12.2); PLATELET COUNT 295 10^3/uL (130-400); WHITE BLOOD COUNT 8.5 10^3/uL (4.3-11.0)
[2021-07-07 19:47] LABS: ALBUMIN 4.3 GM/DL (3.2-4.5); BILIRUBIN,DIRECT 0.1 MG/DL (0.0-0.3); BILIRUBIN,INDIRECT 0.2 MG/DL; BILIRUBIN,TOTAL 0.3 MG/DL (0.1-1.0); CALCIUM 9.3 MG/DL (8.5-10.1); CREATININE SERUM 0.89 MG/DL (0.60-1.30); POTASSIUM 3.9 MMOL/L (3.6-5.0); TOTAL PROTEIN 7.8 GM/DL (6.4-8.2)
[2021-07-07] MEDS ORDERED: NS 100 ML (IVPB) BAG IV ONE (20:00)
[2021-07-07] MEDS ORDERED: IOHEXOL 350 MG/ML 100 ML (OMNIPAQUE 350) VIAL IV ONE (20:00)
[2021-07-07] MEDS ORDERED: HOLD METFORMIN - RECEIVED CONTRAST 20 ML VIAL IV SCH (20:00)
--- NOTE | 2021-07-07 20:36 | Diagnostic Imaging Report ---
INDICATION: Fall from horse with left-sided chest abdominal and pain. TECHNIQUE: Multiple contiguous axial images were obtained through the chest, abdomen, and pelvis after the administration of intravenous contrast. Auto Exposure Controls were utilized during the CT exam to meet ALARA standards for radiation dose reduction. COMPARISON: There is no prior CT chest, abdomen and pelvis for comparison. CT chest findings: There is no mediastinal hematoma or evidence of aortic injury. There is no mediastinal adenopathy or hilar adenopathy. There is no chest wall hematoma. There is no pleural or pericardial fluid. There is a small hiatal hernia. Lung parenchymal windows show mild dependent atelectatic changes in the lung bases there is no pulmonary contusion or infiltrate. There is no pneumothorax. There is no overt bony abnormality in the chest. CT abdomen and pelvis findings: The liver shows no focal lesion. Spleen, pancreas and right adrenal are normal. The left adrenal gland shows a minimal area of thickening superiorly which is probably a small adenoma, measuring about 1.2 cm in short axis. The kidneys, bilaterally, appear unremarkable. There is no retroperitoneal hematoma or mass. There is no ascites or hemoperitoneum. Visualized bowel loops are unremarkable. There is no pelvic mass. Patient has had prior hysterectomy. Bony windows in the pelvis show no evidence of pelvic fracture. There are degenerative findings in the lumbar spine. IMPRESSION: 1. CT chest was essentially unremarkable. 2. CT abdomen and pelvis shows no evidence of solid organ injury, free fluid or acute abnormality. Dictated by: Dictated on workstation # [id number]
[2021-07-07] MEDS ORDERED: KETOROLAC 30 MG/ML VIAL IVP STA (20:47)
[2021-07-07 21:03] VITALS: BP 117/69
== END 2021-07-07 21:04 | disposition home or self-care (01) ==
LOC: EDUNIT# 18:40 → ER 18:43
DX: S30.1XXA Contusion of abdominal wall, initial encounter (principal); S20.212A Contusion of left front wall of thorax, initial encounter; I10 Essential (primary) hypertension; G47.30 Sleep apnea, unspecified; E78.00 Pure hypercholesterolemia, unspecified; F41.9 Anxiety disorder, unspecified; F32.9 Major depressive disorder, single episode, unspecified; E11.9 Type 2 diabetes mellitus without complications; Z79.84 Long term (current) use of oral hypoglycemic drugs; Z79.899 Other long term (current) drug therapy; V80.010A Animal-rider injured by fall from or being thrown from horse in noncollision accident, initial encounter
CPT/HCPCS: 36415; 71260; 74177; 80048; 80076; 84703; 85027; 93041; 96374; 96375

== ENCOUNTER → 2022-03-05 | Outpatient (CLI) | payer BC ==
[~2022-03-05] MED LIST changes: +CYCL10TA25 PO; -CYCL10TA9 PO
--- NOTE | 2022-03-05 17:29 | Diagnostic Imaging Report ---
Indication: Routine screening. No prior mammograms are available for comparison. 2-D and 3-D bilateral screening mammography was performed with CAD. Scattered fibroglandular densities are identified bilaterally. No mass or malignant-appearing microcalcifications are seen. There is benign calcification on the left. The axillae are unremarkable. IMPRESSION: BI-RADS Category 2 No mammographic features suspicious for malignancy are identified. ACR BI-RADS Category 2: Benign findings. Result letter will be mailed to the patient. Note: At least 10% of breast cancer is not imaged by mammography. Dictated by: Dictated on workstation # [id number]
== END ==
LOC: RAD 08:35
PROVIDERS: ATTEND Nurse Practitioner Family
DX: Z12.31 Encounter for screening mammogram for malignant neoplasm of breast (principal)
CPT/HCPCS: 77063; 77067